=== PATIENT | female | born 1980 ===

== ENCOUNTER 2016-06-29 06:55 | Inpatient (IN) | payer MEDICAID, SELFPAY ==
[2016-06-29 07:21] VITALS: BMI 25.0
[2016-06-29] MEDS ORDERED: ceFAZolin 1 GM in Sodium Chloride 0.9% 100 ML IVPB ONE (07:21)
[2016-06-29] MEDS: Lactated Ringer's 1,000 ML IV SCH ×3 (07:30→15:45)
[2016-06-29] MEDS ORDERED: Lactated Ringer's 1,000 ML IV SCH (07:45)
[2016-06-29 08:06] LABS: BASO % 0.1 % (0.0-2.0); EOS % 0.4 % (0.0-4.0); HEMATOCRIT 36.5 % (34.0-47.0); LYMPH # 2.2 K/uL (1.0-4.3); LYMPH % 18.2 % (20.0-40.0); MEAN CELL VOLUME 91.1 fl (81.0-99.0); MEAN CORPUSCULAR HEMOGLOBIN 30.6 pg (27.0-31.0); MEAN CORPUSCULAR HGB CONC 33.6 g/dL (33.0-37.0); MEAN PLATELET VOLUME 8.5 fl (7.2-11.7); MONO # 0.8 K/uL (0.0-0.8); NEUT # 8.9 K/uL (1.8-7.0); NEUT % 74.3 % (50.0-75.0); RED CELL DISTRIBUTION WIDTH 14.1 % (11.5-14.5)
--- NOTE | 2016-06-29 09:01 | OBHP ---
Datetime: 06/29/2016 07:35 IP Adm Impression: Term, intrauterine IP Admit Plan: Admit to unit; Initiate Section protocol Admit Comment, IP Provider: 35 yo , ect x 2 at 37 weeks GA by US 8 weeks with YOKASTA: 07/20/16 pr esents to SANDRA for schedule C section. Patient denies Ctx, VB, LOF, fever, dysuria, and reports + FM . care CFH/C/S recommended by [facility] and Seen/scheduled by Dr Tony Zarcox: C section x 1, ect preg x 2/abd-plasty PMhx: none Allergies: NKDa Meds: PNv PSurgHx: C section x1, ect x2, tummy tuck x1 pShx: No etoh, rect drugs, cig ABO: o+ GBS: neg Antibody: neg HIv: neg Rubella: immune RPR; neg Flu: placed Tdap: placed Assessment/Plan: 35 yo , IUP at 37 weeks GA. Previous C/S classical Hx Abominoplasty AMA declined amnio schedule C section - admit L _ D - Continous monitoring - Iv fluids - Cbc, Type screen -ancef 1 g Iv Dave simmons PGY1 OB Hospitalist on-call...obtain records, Sonogram report/letter from [facility] dept. I saw and examined this patient at 8:30am Pelvic Type - PN: Adequate Extremities - PN: Normal Abdomen - PN: Normal Back - PN: Normal Breast - PN: Not Done Lungs - PN: Normal Heart - PN: Normal Thyroid - PN: Normal Neurologic - PN: Normal HEENT - PN: Normal General - PN: Normal FHR - Baseline A Provider: 120 Contraction Comments Provider: none Comments, ACOG Physical Exam: Us bedside: vertex Abd: transversae abdominal incision - almost to hips Pool Provider: Negative IP Hx Assessment: The History has been Reviewed and is Current Vital Signs Provider: Reviewed; Within Normal Limits IP Chief Complaint: Scheduled Section NICHD Variability Prov Fetus A: Moderate 6-25bpm NICHD Accel Fetus A IP Provider: 15X15 FHR Category Provider Fetus A: Category I NICHD Decel Fetus A IP Provider: None Genitourinary Exam: Normal DTRs - PN: Normal
[2016-06-29 09:45] VITALS: BP 106/71; PULSE 83; RESP 18; TEMP 98; O2SAT 98
[2016-06-29] MEDS ORDERED: Oxycodone/Acetaminophen 5/325 mg Tab PO PRN (12:28)
[2016-06-29] MEDS ORDERED: DiphenhydrAMINE 50 mg/ml Inj IVP PRN ×2 (14:37→15:29)
[2016-06-30] MEDS: Lactated Ringer's 1,000 ML IV SCH ×2 (03:12→09:00)
[2016-06-30] MEDS: Oxycodone/Acetaminophen 5/325 mg Tab PO PRN ×2 (04:16→08:55)
[2016-06-30] MEDS ORDERED: Bisacodyl 5mg EC Tab PO PRN ×2 (07:00)
[2016-06-30 07:45] LABS: HEMATOCRIT 32.4 % (34.0-47.0); MEAN CELL VOLUME 91.7 fl (81.0-99.0); MEAN CORPUSCULAR HEMOGLOBIN 30.3 pg (27.0-31.0); MEAN CORPUSCULAR HGB CONC 33.1 g/dL (33.0-37.0); RED CELL DISTRIBUTION WIDTH 14.3 % (11.5-14.5); WHITE BLOOD COUNT 14.3 K/uL (4.8-10.8)
--- NOTE | 2016-06-30 14:29 | OBPPN ---
Datetime: 06/30/2016 06:25 PP Pain Prov: Within normal limits PP Nausea Prov: Denies PP Flatus Prov: Yes PP BM Prov: No PP Heart Prov: Normal PP Lungs Prov: Normal PP Abdomen/Uterus Prov: Normal PP Lochia Prov: Normal PP Extremities Prov: Normal PP C/S Incision Prov: Normal PP Comments Phys Exam Prov: Fundus firm at the level of the umbilicus PP Impression Prov: Normal progression PP Plan Prov: Continue present management PP Progress Note Prov: 35 YO seen and examined at bedside. Patient had uneventful overnight and has been feeling well during the day. Patient reports mild pelvic pain controlled w/ pain meds. Currentlty supplementing with bottle feeding. Breast milk is currently not adequate in quantity. P atient has been tolerating PO intake of liquids has not yet had solids. Patient denies any nausea or vomiting. Patient passed gas but has not yet had a bowl movment. Pain controlled with medication. D enies fevers, chills, n/v/d, CP/SOB, lightheadedness and calf pain. Assessment:35 YO s/p C section on 06/29/16 @ 11:40am tolerating pain w/ medication, tole rating oral intake, adequate urine output, doing well on POD#1 Plan: - Mild pain (1-3) PRN: Ibuprofen 600 mg 1 tab Q6h PO - Mod pain (4-7) PRN: Percocet 5/325 mg 1 tab Q6 PO - Encourage breast feeding and ambulation Machelle Phoenix PGY1 OB Hospitalist on-call Pt was seen on rounds. Agree with PGY1 note. ANDI AMANDA PP Procedures: None Vital Signs Provider PP: Reviewed; Within Normal Limits
--- NOTE | 2016-06-30 14:40 | OBDS ---
DELIVERY PERSONNEL Delivery Doctor: Tiffany Palmer DO Scrub Nurse: Aurelia Cheema Office Support Associate: MBorreoRN/WGrimmRN MATERNAL INFORMATION Delivery Anesthesia: Spinal Medications in Delivery: Pitocin Placenta Cultured: No Maternal Complications: None Provider Comments: Pre Op Dx IUP at 37w Previous C/S x 1 classical incision Post OpDx same/adhesions Procedure: Repeat LTCS via previous scar Surgeon Dr Estela Swift Anesth: Dr Albert Anesth: spinal Findings Live female delivered from cephalic presentaton 9,9 Clear AF Placenta delivered intact manually Ovaries WNL grossly She remained stable EBL 800cc LABOR SUMMARY EDC: 07/20/2016 00:00 No. Babies in Womb: 1 Attempted: No Labor Anesthesia: spinal LABOR INFORMATION Reason for Induction: Not Applicable Oxytocin: N/A Group B Beta Strep: Negative Antibiotics # of Doses: 1 Antibiotics Time of Last Dose: Ancef 1 gram IVPB @ 1030 Steroids Given: None Reason Steroids Not Administered: Not Applicable MEMBRANES Membranes Rupture Method: Artificial Rupture of Membranes: 06/29/2016 11:39 Length of Rupture (hrs): 0.02 Amniotic Fluid Color: Clear Amniotic Fluid Amount: Moderate Amniotic Fluid Odor: Normal STAGES OF LABOR Stage 3 hrs: 0 Stage 3 min: 1 CSECTION DELIVERY Primary Indication: Repeat Elective Other Primary Indication: previous classical C-S CSection Urgency: Elective CSection Incidence: Repeat Labor: No Labor Elective: Elective CSection Incision: Lower Uterine Transverse BABY A INFORMATION Infant Delivery Date/Time: 06/29/2016 11:40 Method of Delivery: Born in Route : No : N/A Forceps: N/A Vacuum Extraction: N/A Shoulder Dystocia : No SHOULDER DYSTOCIA BABY A Infant Delivery Date/Time: 06/29/2016 11:40 PRESENTATION/POSITION BABY A Presentation: Cephalic Cephalic Presentation: Vertex Vertex Position: Left Occipital Anterior Breech Presentation: N/A PLACENTA INFORMATION BABY A Placenta Delivery Time : 06/29/2016 11:41 Placenta Method of Delivery: Expressed Placenta Status: Delivered SCORES BABY A Heart Rate 1 min: >100 bpm Resp Effort 1 min: Good Cry Reflex Irritability 1 min: Cough or Sneeze or Pulls Away Muscle Tone 1 min: Active Motion Color 1 min: Body [place], Extremities Blue Resuscitation Effort 1 min: Tactile Stimulation SCORE 1 MIN: 9 Heart Rate 5 min: >100 bpm Resp Effort 5 min: Good Cry Reflex Irritability 5 min: Cough or Sneeze or Pulls Away Muscle Tone 5 min: Active Motion Color 5 min: Body [place], Extremities Blue Resuscitation Effort 5 min: N/A SCORE 5 MIN: 9 INFORMATION BABY A Gestational Age at Delivery: 37.0 Gestational Status: Term Infant Outcome : Liveborn Condition : Stable Infant Sex: Female IDENTIFICATION/MEDS BABY A ID Band Number: [id number] ID Band Location: Left Leg; Left Arm Vitamin K Given : Not Given Erythromycin Given: Not Given WEIGHT/LENGTH BABY A Birthweight (gms): 3050 Infant Weight (lb): 6 Weight (oz): 12 CORD INFORMATION BABY A No. Cord Vessels: 3 Nuchal Cord : N/A Nuchal Cord Other: n/a True Knot: n/a Cord pH Baby Arterial: n/a Cord pH Baby Venous: n/a Cord Blood Taken: Yes Banking/Donate Info: n/a Suction: Mouth ASSESSMENT BABY A Infant Complications: None Physical Findings at Delivery: Within Normal Limits Infant Respirations: Appears Normal General Ledger Bookkeeper/ALS Called : No Care By: Loren/STEPHANIE MalonerimmDEVANG Transferred To: [facility]
[2016-06-30] MEDS ORDERED: Lansinoh for Breast Feeding Mothers TP PRN (16:19)
[2016-06-30] MEDS ORDERED: Simethicone 80 mg Chewtab PO PRN (22:24)
[2016-07-01] MEDS: Oxycodone/Acetaminophen 5/325 mg Tab PO PRN ×4 (02:55→21:03)
[2016-07-01] MEDS: Hydrocortisone-Pramoxine 1%-1% Foam(10 gm) TOP SCH ×3 (09:24→17:02)
[2016-07-01] MEDS: Simethicone 80 mg Chewtab PO SCH ×2 (12:57→17:01)
[2016-07-02] MEDS: Hydrocortisone-Pramoxine 1%-1% Foam(10 gm) TOP SCH (08:30)
[2016-07-02] MEDS: Simethicone 80 mg Chewtab PO SCH (08:30)
--- NOTE | 2016-07-02 08:33 | OP ---
PROCEDURE DATE: 06/30/2016 PREOPERATIVE DIAGNOSES: 1. Intrauterine at 37 weeks gestation. 2. Previous section x 1 classical and previous uterine classical incision. POSTOPERATIVE DIAGNOSES: 1. Intrauterine at 37 weeks gestation. 2. Pelvic adhesions. PROCEDURE: Repeat low transverse section via previous surgical scar. SURGEON: Davon Palmer DO COMBINER: Dr. Miles Swift (Dr. Miles Swift is a board certified PHOTOCOPIER TECHNICIAN physician who was present in labor and delivery. There were no residents available. He was present throughout the procedure from skin incision to delivery of the infant to closure of the skin). ANESTHESIOLOGIST: Dr. Albert ANESTHESIA: Spinal. OPERATIVE FINDINGS: Live female infant delivered from a cephalic presentation, score 9 and 9 a t 1 and 5 minutes respectively. Clear amniotic fluid noted. Placenta was delivered intact manually. Ovaries and tubes appeared to be within normal limits grossly. She remained hemodynamically stable . All equipment, sponges, needles accounted for. BLOOD LOSS: 800 mL. DESCRIPTION OF PROCEDURE: The patient was brought to the operating room. After successful spinal an esthesia by Dr. Albert, she was placed in a supine position. Compression boots were placed on both l ower extremities. A catheter was placed in the urethra and into the bladder and noted to be draining clear urine. Once adequate anesthesia was obtained, a scalpel was used to remove part of the abdomi nal scar that was present. Incision was then taken down to underlying fascia using electrocautery. Fascia was nicked in the midline and then extended bilaterally using electrocautery. Inferior aspect of the fascia was grasped using 2 Juan clamps, tented up, and the rectus muscle was both bluntly a nd sharply dissected using electrocautery. The same was done with the superior aspect of the fascia. In the midline superiorly, rectus muscle was noted to be and we were able to identify the peritoneum. This was tented up using 2 Dluce clamps and incised and this incision was then extended superiorly and inferiorly with direct visualization of bladder and intestines. Bladder blade was th en inserted. A bladder flap was created on the uterus by incising peritoneum on the uterus and exten ded bilaterally using Metzenbaum scissors. Bladder blade was then inserted behind the bladder flap. A low transverse incision was made using a scalpel. Upon entering the uterus, clear amniotic fluid was noted. Incision was then extended bilaterally using bandage scissors. Infant's head was deliver ed as atraumatically as possible. was crying spontaneously, was bulb suctioned nasopharyngeal ly. The remainder of the infant was then delivered as atraumatically as possible. Cord was clamped and cut. was handed to the air brush artist in attendance. Placenta was delivered intact manuall y. Uterus was then exteriorized and cleared of debris and clots. Good contracted uterus is noted. An 0 Vicryl suture was used to close the first layer of the uterus. An 0 Vicryl suture was used to c lose the second layer of the uterus, imbricating the first layer. Both layers were done in interlock ing fashion. Ovaries appeared to be within normal limits. Posterior cul-de-sac was noted to be doyle red of debris and clots. Pericolic gutters were noted to be cleared of debris and clots. Uterus was placed back into peritoneal cavity. Some omental adhesions were noted on the left anterior abdomina l wall. These were taken down using electrocautery, hemostasis being assured. Once omental adhesion s were noted to be cleared and no other adhesions noted, we closed the peritoneum in a running fashio n using 0 Vicryl suture. Rectus muscle was noted to have good hemostasis. An 0 PDS suture was then used to close the fascial layer in a running fashion x 2. Irrigation was performed. Hemostasis assu red upon closure of each layer. A 2-0 plain suture was used to approximate the subcuticular layer, 3 -0 Vicryl suture was used to approximate the skin. Skin mikaela were also applied to assist in closu re. A pressure bandage was applied. She was then brought to the recovery room in stable condition. All equipment, sponges, needles accounted for. Davon Palmer DO cc: 135 TT: 07/02/2016 08:32:07 en
--- NOTE | 2016-07-02 09:12 | OBPPN ---
Datetime: 07/02/2016 06:42 PP Pain Prov: Within normal limits PP Nausea Prov: Denies PP Flatus Prov: Yes PP BM Prov: Yes PP Breasts Prov: Normal PP Heart Prov: Normal PP Lungs Prov: Normal PP Abdomen/Uterus Prov: Normal PP Lochia Prov: Normal PP Vulva/Perineum Prov: Normal PP CVA Tenderness Prov: Normal PP Extremities Prov: Normal PP C/S Incision Prov: Normal PP Progress Prov: Normal PP Comments Phys Exam Prov: Abd: diffuse rash associated with abd binder. no eryhtema over incision Uterus: firm below umbilicus Incision: C/D/I. mikaela rectum: prolapsed internal hemorrhoids, no thrombosis. PP Impression Prov: Endometritis PP Plan Prov: Continue present management; Discharge PP Progress Note Prov: 35 y/o ect preg x2 seen and examined at bedside. Patient had h ad uneventful overnight. Patient reports mild pelvic pain controlled w/ pain meds. AAO ambulating w/ o dizziness. /bottle feeding w/o difficulty Tolerating PO diet well. Lochia is less than menses in volume. Voiding w/ no blood noted . Reports flatus and 1 BM today in the morning. reports rectal pain when walking associated with hemorrhoids . Denies fevers, chills, n/v/d, CP/SOB, lightheadedness and calf pain. Assessment: 35y/o ect preg x2 s/p schedule C/section on 06/29/2016 @ 11:40 AM tolera ting pain w/ medication, tolerating oral intake, adequate urine output, doing well on POD3. Plan: Ibuprofen 600 mg 1 tab Q6h PO prn for mild pain. -Percocet 5/325 mg 1-2 tabs PO Q6h prn for mod/severe pain. Encourage breast feeding and ambulation. -Using tuck pad and epifoam -Discharge Home Today Dave Chester PGY- OBH ADDENDUM: pt seen _ examined by me. agree with above assessment and plan. advised of risk of constipation and addiction with percocet. Vital Signs Provider PP: Reviewed; Within Normal Limits Datetime: 07/01/2016 08:53 IP PP Procedures: None
--- NOTE | 2016-07-02 09:14 | OBDCSUM ---
Datetime: 07/02/2016 06:48 Discharged to, Provider: Home Follow up at, Provider: [facility] Disch Instr Activity: Normal activity; May Shower Disch Instr Diet: Regular Discharge Instructions, Provider: Routine instructions given Discharge Diagnosis, Provider: Term Delivered Discharge Time: 07/02/2016 06:48 Follow up in weeks, Provider: 7 days Disch Activity Restrictions: No exercising; No lifting; No driving; No sexual activity; Nothing in v agina - [place], tampons, douche Discharge Comment, Provider: 35 y/o ect preg x2 s/p C/section @ 37 weeks GA Delivered baby girl on 06/29/16 @ 11:40 am,weight 3050 g , : 9-9 Patient doing well, stable for discharge. Prescription given for pain -Encourage -Ibuprofen 600 mg PO 1 tab PO Q6h for pain PRN -Percocet 5/325 mg 1-2 tab PO Q 6h PRN pain -Discharge today Ambulate w/ caution, nothing in vagina, no heavy lifting, avoid stairs, if excessive bleeding or f ever without relief from Tylenol go to ED - Advised for F/U [facility] clinic in 7 days and 2-3 days for with cigarette machine filler. Dave Chester PGY1 OBH ADDENDUM: pt seen _ examined by me. agree with above assessment and plan. advised of risk of constipation and addiction with percocet. rx also given for senokot s prn Discharge Diagnosis Prov Other: schedule c section Contraception after Delivery: Undecided
== END 2016-07-02 14:44 | disposition home or self-care (01) | DRG 765 ==
LOC: H.EROB2 06:55 → H.L&D 07:42 → H.OB/GYN 15:31
PROVIDERS: ADMIT Obstetrics & Gynecology; ATTEND Obstetrics & Gynecology
PROC: 10D00Z0 Extraction of Products of Conception, High, Open Approach (ICD-10-PCS; principal; 2016-06-29)
PROC: 4A1HXCZ Monitoring of Products of Conception, Cardiac Rate, External Approach (ICD-10-PCS; 2016-06-29)
DX: O34.212 Maternal care for vertical scar from previous cesarean delivery (principal); O22.43 Hemorrhoids in pregnancy, third trimester; N73.6 Female pelvic peritoneal adhesions (postinfective); N85.8 Other specified noninflammatory disorders of uterus; Z37.0 Single live birth; Z3A.37 37 weeks gestation of pregnancy; O99.89 Other specified diseases and conditions complicating pregnancy, childbirth and the puerperium; K62.89 Other specified diseases of anus and rectum

== ENCOUNTER 2018-01-18 18:35 | Emergency (ER) | payer SELFPAY ==
[2018-01-18 18:35] VITALS: BMI 25.0
[2018-01-18 19:09] VITALS: BP 131/85; PULSE 69; RESP 20; TEMP 98.8; O2SAT 99
--- NOTE | 2018-01-18 20:01 | ED PDOC ---
HPI: Abdomen Time Seen by Provider: 01/18/18 19:15 Chief Complaint (Nursing): Abdominal Pain Chief Complaint (Provider): Pelvic Pain History Per: Patient, Cleaning Specialist (Padmini Becker- Certified bilingual interpreter) History/Exam Limitations: no limitations Onset/Duration Of Symptoms: Days (x 2) Current Symptoms Are (Timing): Still Present Quality Of Discomfort: "Pain" Additional Complaint(s): 37 year old female presents to the ED with pelvic pain and a mild headache for the last 2 days. Patient is 6 weeks and reports that pain feels si milar to period cramping. She has experienced two ectopic pregnancies in the past. Visited the clinic yesterday, but does not have appointment until February and is scared to wait. Denies vaginal bleeding, discharge, nausea and vomiting. PMD: none provided Abnormal Vaginal Bleeding: No Last Menstral Period: 12/05/2017 : 5 Para: 2 Miscarriage: 2 Past Medical History Reviewed: Historical Data, Nursing Documentation, Vital Signs Vital Signs: Last Vital Signs Temp 98.8 F 01/18/18 19:06 Pulse 69 01/18/18 19:06 Resp 20 01/18/18 19:06 BP 131/85 01/18/18 19:06 Pulse Ox 99 01/18/18 19:06 - Medical History PMH: Anemia - Surgical History Surgical History: (1) - Family History Family History: States: Unknown Family Hx - Home Medications Home Medications: Ambulatory Orders Medication Instructions Recorded Multivit/Folic Acid/I 1 tab PO DAILY 06/29/16 [] Ibuprofen [Motrin] 600 mg PO Q6 PRN #30 tab 06/30/16 oxyCODONE/Acetaminophen [Percocet 1 ea PO Q6 PRN #20 tab 06/30/16 5/325 mg Tab] Sennosides A and B [Senna 8.6 mg PO PRN PRN #8 tab 07/02/16 Concentrate] - Allergies Allergies/Adverse Reactions: Allergies Allergy/AdvReac Type Severity Reaction Status Date / Time No Known Allergies Allergy Unverified 12/13/15 09:07 Review of Systems ROS Statement: Except As Marked, All Systems Reviewed And Found Negative Gastrointestinal: Negative for: Nausea, Vomiting Genitourinary Female: Positive for: Pelvic Pain. Negative for: Vaginal Discharge, Vaginal Bleeding Neurological: Positive for: Headache Physical Exam - Reviewed Nursing Documentation Reviewed: Yes Vital Signs Reviewed: Yes - Physical Exam Appears: Positive for: Non-toxic, No Acute Distress Head Exam: Positive for: ATRAUMATIC, NORMAL INSPECTION, NORMOCEPHALIC Skin: Positive for: Normal Color, Warm, Dry Eye Exam: Positive for: EOMI, Normal appearance, PERRL Neck: Positive for: Normal, Painless ROM, Supple Cardiovascular/Chest: Positive for: Regular Rate, Rhythm. Negative for: Murmur Respiratory: Positive for: Normal Breath Sounds. Negative for: Respiratory Distress Gastrointestinal/Abdominal: Positive for: Normal Exam, Soft. Negative for: Tenderness Extremity: Positive for: Normal ROM (upper and lower). Negative for: Deformity Neurologic/Psych: Positive for: Alert, Oriented. Negative for: Motor/Sensory Deficits - Laboratory Results Result Diagrams: 01/18/18 20:08 01/18/18 20:08 - ECG O2 Sat by Pulse Oximetry: 99 (RA) Pulse Ox Interpretation: Normal Medical Decision Making Medical Decision Makin:17 MDM: very well appearing female at approximately 6 weeks gestation US to rule out ectopic or other pathologies Initial Plan: --Blood type --BMP --CBC --Urine dip --Urine preg --Beta-HCG --OB transvaginal US --Tylenol 650 mg PO 22:34 US A single intrauterine is identified with crown/rump length of 0.3 cm, which corresponds to the mean estimated gestational age of 5 weeks 6 days. heart motion is present, 91 beats per minute. Yolk sac is identified measuring 0.6 cm. pole is identified. Gestational sac is identified with the mean sac diameter of 1 cm. This will correlate with age obtained by CRL method. The uterus is anteverted measuring 7.4 x 5.4 x 5.5 cm. The cervical length is 3.8 and the cervix is closed. The right ovary measures 2.2 x 1.6 x 1.7 cm. The left ovary measures 2.7 x 1.8 x 3.1 cm. The right ovary is free of masses. Blood flow is demonstrated within both ovaries. Questionable corpus luteum cyst is seen within the left ovary measuring 1.7 x 1.5 x 1.8 cm. IMPRESSION: 1. Single, live, intrauterine gestation, 5 weeks 4 days based on todays crown/rump length. 2. Questionable left ovarian corpus luteum cyst. --Patient remains well appearing --Advised of results and advised patient to followup with OB clinic --Return precautions given Scribe Attestation: Documented by Karla Saab acting as a scribe for Junaid Zee MD Provider Scribe Attestation: All medical record entries made by the Scribe were at my direction and personally dictated by me. I have reviewed the chart and agree that the record accurately reflects my personal performance of the history, physical exam, medical decision making, and the department course for this patient. I have also personally directed, reviewed, and agree with the discharge instructions and disposition. Disposition - Clinical Impression Clinical Impression: Abdominal pain during - Disposition Disposition: Routine/Home Disposition Time: 22:34 Condition: STABLE Instructions: How to Adapt to Physical Changes During , Symptoms, - The Second Month, Round Ligament Pain Forms: [employer] (Mongolian) Print Language: MONGOLIAN
[2018-01-18 20:24] LABS: BASO % 0.2 % (0.0-2.0); EOS % 0.5 % (0.0-4.0); HEMOGLOBIN 13.3 g/dL (12.0-16.0); LYMPH # 2.7 K/uL (1.0-4.3); LYMPH % 32.8 % (20.0-40.0); MEAN CELL VOLUME 91.4 fl (81.0-99.0); MEAN CORPUSCULAR HEMOGLOBIN 30.5 pg (27.0-31.0); MEAN CORPUSCULAR HGB CONC 33.4 g/dL (33.0-37.0); MEAN PLATELET VOLUME 8.3 fl (7.2-11.7); MONO # 0.6 K/uL (0.0-0.8); MONO % 7.3 % (0.0-10.0); NEUT # 4.9 K/uL (1.8-7.0); NEUT % 59.2 % (50.0-75.0); RBC 4.36 Mil/uL (3.80-5.20); RED CELL DISTRIBUTION WIDTH 13.2 % (11.5-14.5); WHITE BLOOD COUNT 8.4 K/uL (4.8-10.8)
[2018-01-18 20:36] LABS: BLOOD UREA NITROGEN 16 mg/dl (7-17); CALCIUM 9.3 mg/dL (8.4-10.2); GFR NON-AFRICAN AMERICAN > 60
--- NOTE | 2018-01-19 09:37 | US ---
Date of service: 01/18/2018 PROCEDURE: HISTORY: hx of ectopic, 6 wks preg, lower abd pain COMPARISON: TECHNIQUE: FINDINGS: The uterus is normal in size. There is intrauterine gestation sac as well as a pole measuring 5 millimeters corresponding to 5 weeks and 6 days. There is heart motion observed. The right ovary is unremarkable. There is a 1.8 centimeter left corpus luteum. IMPRESSION: As above.
== END 2018-01-18 23:31 | disposition home or self-care (01) ==
LOC: H.ER 18:35
DX: O26.91 Pregnancy related conditions, unspecified, first trimester (principal)

== ENCOUNTER 2018-02-05 18:43 | Emergency (ER) | payer OTHER ==
[2018-02-05 18:43] VITALS: BMI 25.0
[2018-02-05 18:59] VITALS: RESP 18
[2018-02-05] MEDS ORDERED: Lactated Ringer's 1,000 ML IV STA (19:13)
[2018-02-05 19:43] LABS: BASO % 0.3 % (0.0-2.0); EOS # 0.1 K/uL (0.0-0.7); EOS % 1.4 % (0.0-4.0); HEMOGLOBIN 13.2 g/dL (12.0-16.0); LYMPH # 2.6 K/uL (1.0-4.3); LYMPH % 30.3 % (20.0-40.0); MEAN CELL VOLUME 91.7 fl (81.0-99.0); MEAN CORPUSCULAR HEMOGLOBIN 30.4 pg (27.0-31.0); MEAN CORPUSCULAR HGB CONC 33.1 g/dL (33.0-37.0); MONO # 0.4 K/uL (0.0-0.8); NEUT # 5.4 K/uL (1.8-7.0); NRBC % 0.1 % (0.0-0.0); RBC 4.36 Mil/uL (3.80-5.20); RED CELL DISTRIBUTION WIDTH 13.2 % (11.5-14.5); WHITE BLOOD COUNT 8.6 K/uL (4.8-10.8)
[2018-02-05 19:57] LABS: PARTIAL THROMBOPLASTIN TIME 37.8 Seconds (25.6-37.1)
[2018-02-05 21:58] VITALS: BP 108/73; PULSE 91; TEMP 98; O2SAT 100
--- NOTE | 2018-02-05 22:13 | ED PDOC ---
HPI: Female Pain Time Seen by Provider: 02/05/18 19:02 Chief Complaint (Nursing): Female Genitourinary Chief Complaint (Provider): Vaginal Bleeding History Per: Patient History/Exam Limitations: no limitations Onset/Duration Of Symptoms: Days Current Symptoms Are (Timing): Still Present Quality Of Discomfort: Cramping Additional Complaint(s): 37 year old female presents to the ED for an evaluation for vaginal bleeding. She has been bleeding since Saturday. Patient reports of brown spotting that increased to darker, heavy red bleeding with clots. She used 3 pads a day and had mild cramping pain. Also takes vitamins and states she had 2 ectopic pregnancies in the past. Patient is 8 weeks and she has not started on care because she has difficulty scheduling an appointment. Patient was seen in the ED on January 18 for pelvic pain and thought to have IUP at 6 weeks. Otherwise, patient denies fever, cough or shortness of breath. PMD: No family provider Abnormal Vaginal Bleeding: Yes : 5 Para: 2 Past Medical History Reviewed: Historical Data, Nursing Documentation, Vital Signs Vital Signs: Last Vital Signs Temp 98.0 F 02/05/18 21:40 Pulse 91 H 02/05/18 21:40 Resp 18 02/05/18 21:40 BP 108/73 02/05/18 21:40 Pulse Ox 100 02/05/18 21:40 - Medical History PMH: Anemia - Surgical History Surgical History: (1) - Family History Family History: States: Unknown Family Hx - Social History Current smoker - smoking cessation education provided: No Alcohol: None Drugs: Denies - Home Medications Home Medications: Ambulatory Orders Medication Instructions Recorded RX: Multivit/Folic Acid/I 1 tab PO DAILY 06/29/16 [] Ibuprofen [Motrin] 600 mg PO Q6 PRN #30 tab 06/30/16 oxyCODONE/Acetaminophen [Percocet 1 ea PO Q6 PRN #20 tab 06/30/16 5/325 mg Tab] Sennosides A and B [Senna 8.6 mg PO PRN PRN #8 tab 07/02/16 Concentrate] RX: Ibuprofen [Motrin Tab] 600 mg PO Q8 PRN #30 tab 02/05/18 RX: traMADol [Ultram] 50 mg PO TID PRN #15 tab 02/05/18 miSOPROStol [Cytotec] 800 mcg VAG Q3 #12 tab 02/05/18 - Allergies Allergies/Adverse Reactions: Allergies Allergy/AdvReac Type Severity Reaction Status Date / Time No Known Allergies Allergy Verified 02/05/18 18:52 Review of Systems ROS Statement: Except As Marked, All Systems Reviewed And Found Negative (As per HPI, otherwise negative) Constitutional: Negative for: Fever Cardiovascular: Negative for: Chest Pain Respiratory: Negative for: Cough, Shortness of Breath Gastrointestinal: Negative for: Nausea, Vomiting, Diarrhea Genitourinary Female: Positive for: Vaginal Bleeding. Negative for: Dysuria, Frequency, Incontinence Skin: Negative for: Rash Physical Exam - Reviewed Nursing Documentation Reviewed: Yes Vital Signs Reviewed: Yes - Physical Exam Appears: Positive for: Non-toxic, No Acute Distress Head Exam: Positive for: ATRAUMATIC, NORMOCEPHALIC Skin: Positive for: Warm, Dry. Negative for: Pallor Eye Exam: Positive for: EOMI, PERRL Cardiovascular/Chest: Positive for: Regular Rate, Rhythm. Negative for: Murmur Respiratory: Negative for: Accessory Muscle Use, Respiratory Distress Gastrointestinal/Abdominal: Positive for: Soft, Tenderness (mild suprapubic ). Negative for: Mass, Distended, Guarding, Rebound Back: Positive for: Normal Inspection. Negative for: Decreased ROM Extremity: Positive for: Normal ROM. Negative for: Deformity Lymphatic: Negative for: Adenopathy Neurologic/Psych: Positive for: Alert. Negative for: Motor/Sensory Deficits - Laboratory Results Result Diagrams: 02/05/18 19:35 - ECG O2 Sat by Pulse Oximetry: 100 (RA) Pulse Ox Interpretation: Normal Medical Decision Making Medical Decision Making: Time: 1912 Initial Impression: vaginal bleeding Differential Diagnosis: threatened , incomplete , demised BETA-HCG, quantitative ED urine ED urine dipstick CBC w/ Differential PTT Prothrombin time Lactated Ringers 1,000 mls/hr IV insertion OB transvaginal US Reevaluation Time: 2045 Procedure OB Pelvic Ultrasound History Bleeding. Rule out demise. Comparison None available. Findings Uterus Single intrauterine gestation. Gestational sac diameter equivalent to 5 wks/6 days gestation Heart motion not detected. Uterus measures 8.3 x 5.2 x 6 cm. No mass. pole and yolk sac are identified. Cervix Long and closed measuring 3.1 cm. No cervical abnormality seen. Right Ovary Measures 2.3 x 1.7 x 1.8 cm. No mass. Normal flow. Left Ovary Measures 3.4 x 3 x 2.4 cm. No mass. Normal flow. Free Fluid None. Other Findings None. Impression Single intrauterine gestation. No pole or cardiac activity is seen. Findings are most compatible with demise Previous blood bank history presents patient has positive O type Case discussed with Dr. Palmer and he advised pain management and cytotec. Discussed findings with patient and precautions were given for vaginal bleeding. Upon provider reevaluation patient is feeling better, is medically stable, and requires no further treatment in the ED at this time. Patient will be discharged home. Counseling was provided and all questions were answered regarding diagnosis and need for [facility]. There is agreement to discharge plan. Return if symptoms persist or worsen. Scribe Attestation: Documented by José Luis Belle, acting as a scribe for Erlinda Wade MD Provider Scribe Attestation: All medical record entries made by the Scribe were at my direction and personally dictated by me. I have reviewed the chart and agree that the record accurately reflects my personal performance of the history, physical exam, medical decision making, and the department course for this patient. I have also personally directed, reviewed, and agree with the discharge instructions and disposition. Disposition - Clinical Impression Clinical Impression: demise - Patient ED Disposition Is Patient to be Admitted: No - Disposition [facility]errals[facility] (KEEP YOUR APPOINTMENT FOR FEBRUARY 12 FOR REEVALUATION) Disposition: Routine/Home Disposition Time: 20:00 Condition: STABLE Additional Instructions: JOSE IBUPROFEN Y TRAMADOL ANTES [place] CYTOTEC REGRESA SI ESTA [place] MAS QUE JAY KOTEX CADA HORA, MUCHO DOLOR, MUCHO DISABILIDAD O OTRAS MALAS SINTOMAS Prescriptions: RX: Ibuprofen [Motrin Tab] 600 mg PO Q8 PRN #30 tab PRN Reason: Pain, Moderate (4-7) miSOPROStol [Cytotec] 800 mcg VAG Q3 #12 tab RX: traMADol [Ultram] 50 mg PO TID PRN #15 tab PRN Reason: SEVERE PAIN ONLY Instructions: Miscarriage (DC) Forms: [facility] ED School/Work Excuse Print Language: LUX[place]BOURGISH
--- NOTE | 2018-02-06 11:47 | US ---
Date of service: 02/05/2018 PROCEDURE: OB Pelvic Ultrasound HISTORY: vaginal bleeding preg 8 weeks r/o demise COMPARISON: 01/18/2018. FINDINGS: UTERUS: Single Live intrauterine gestation. Yolk sac is visualized. CRL measures 0.24 cm corresponding to 5 weeks and 5 days of gestational age. Gestational sac is irregular and diameter measures 1.5 cm equivalent to 5 weeks and 6 days of gestational age. age (Ultrasound estimated): 5 weeks and 6 days Date of delivery (Ultrasound estimated) : 10/02/2018 cardiac activity is not documented on the current examination. Daiana-gestational hemorrhage: None. Uterus measures 8.2 x 5.2 x 6.0 cm. No mass CERVIX: Long and closed. No cervical abnormality seen. RIGHT OVARY: Measures 2.3 x 1.7 x 1.8 cm. No mass. Normal flow. LEFT OVARY: Measures 3.4 x 3.0 x 2.4 cm. No mass. Normal flow. FREE FLUID: None. OTHER FINDINGS: None. IMPRESSION: Single intrauterine fetus with mean gestational age of 5 weeks and 6 days. No cardiac activity is documented on the current examination concerning for demise. A preliminary report was provided by [employer].
== END 2018-02-05 21:40 | disposition home or self-care (01) ==
LOC: H.ER 18:43
DX: O02.1 Missed abortion (principal); O20.9 Hemorrhage in early pregnancy, unspecified; Z3A.08 8 weeks gestation of pregnancy
CPT/HCPCS: 76817; 81025; 84702; 85025; 85610; 85730; 99284; J7120